=== PATIENT | male | born 1965 | race Caucasian/White ===

== ENCOUNTER 2016-07-11 10:22 | Observation (INO) | payer BC ==
[~2016-07-11] VITALS: Ht 177.8 cm; Wt 96.3 kg
[~2016-07-11 10:22] MED LIST: AMARYL2 MG PO; ASPIRIN E.C.81 M1 PO; Glucophage PO; JANUVIA100 MG PO; LIPITOR40 MG PO; Levaquin PO; Zestril,Prinivil PO
[2016-07-11] MEDS ORDERED: GLUCOPHAGE500 MG PO (10:50)
[2016-07-11] MEDS ORDERED: RABEPRAZOLE SOD20 MG PO (10:51)
[2016-07-11 11:23] LABS: EOSINOPHIL (%) 0.2 % (0-5); HEMATOCRIT 40.7 % (38.0-50.0); IMMATURE GRANULOCYTE (%) 0.1 % (0.0-0.7); IMMATURE GRANULOCYTE COUNT 0.1 K/uL; LYMPHOCYTE COUNT 1.8 K/uL (1.0-2.8); MCH 29.3 PG (29.0-34.0); MCHC 36.6 G/DL (30.0-36.0); MCV 80.1 FL (86-99); MEAN PLAT.VOLUME 10.8 uM^3 (9.0-12.4); MONOCYTE (%) 5.1 % (3-12); MONOCYTE COUNT 0.5 K/uL (0-0.8); NEUTROPHIL (%) 74.3 % (45-76); NEUTROPHIL COUNT 6.5 K/uL (1.8-6.4); PLATELET COUNT 236 K/uL (156-360); RBC DIS.WIDTH-CV 12.5 % (11.8-14.6); RBC DIS.WIDTH-SD 35.5 % (39-53); RED BLOOD COUNT 5.08 M/uL (4.00-5.50); WHITE BLOOD COUNT 8.8 K/uL (4.1-10.2)
[2016-07-11 11:34] LABS: CHLORIDE 99 mEq/L (99-109); SODIUM 134 mEq/L (136-147)
[2016-07-11 11:36] LABS: GLUCOSE 329 mg/dL (70-99)
[2016-07-11 11:38] LABS: ANION GAP 11 MEQ/L (2-14); TOTAL BILIRUBIN 0.9 mg/dL (0.0-1.0)
[2016-07-11 11:40] LABS: ALKALINE PHOSPHATASE 83 IU/L (3-129); GFR ESTIMATE (CALCULATED) > 59 mL/min/
[2016-07-11 11:41] LABS: UREA NITROGEN (BUN) 11 mg/dL (9-23)
[2016-07-11 11:44] LABS: LIPASE 17 U/L (1.0-51.0)
[2016-07-11 12:04] LABS: TROP-I INTERPRETATION NEGATIVE; TROPONIN-I < 0.01 ng/mL (0.0-0.30)
[2016-07-11] MEDS ORDERED: GLIPIZIDE10 MG PO (13:28)
[2016-07-11] MEDS ORDERED: TYLENOL EXTRA500 MG PO (13:31)
[2016-07-11 14:44] VITALS: BP 197/109
[2016-07-11 14:48] LABS: Estimated Average Glucose 286 mg/dL (70-123); HEMOGLOBIN A1c (GLYCOHEMOGLOB) 11.6 % HGB (Below 5.7)
[2016-07-11 16:00] VITALS: BP 176/110
[2016-07-11 17:37] LABS: POINT-OF-CARE METER ID UU13113700
[2016-07-11 18:12] LABS: TROP-I INTERPRETATION NEGATIVE; TROPONIN-I 0.01 ng/mL (0.0-0.30)
[2016-07-11 21:22] VITALS: BP 150/86
[2016-07-11 22:05] LABS: POINT-OF-CARE METER ID UU13113700
[2016-07-12 01:26] LABS: TROP-I INTERPRETATION NEGATIVE; TROPONIN-I < 0.01 ng/mL (0.0-0.30)
[2016-07-12 04:57] VITALS: BP 163/99
[2016-07-12 06:12] LABS: HEMATOCRIT 41.8 % (38.0-50.0); MCH 28.1 PG (29.0-34.0); MCHC 34.4 G/DL (30.0-36.0); MCV 81.5 FL (86-99); MEAN PLAT.VOLUME 10.7 uM^3 (9.0-12.4); PLATELET COUNT 231 K/uL (156-360); RBC DIS.WIDTH-CV 12.6 % (11.8-14.6); RBC DIS.WIDTH-SD 37.8 % (39-53); RED BLOOD COUNT 5.13 M/uL (4.00-5.50); WHITE BLOOD COUNT 8.5 K/uL (4.1-10.2)
[2016-07-12 06:31] LABS: ANION GAP 8 MEQ/L (2-14); CHLORIDE 103 MEQ/L (99-109); GFR ESTIMATE (CALCULATED) > 59 mL/min/; POTASSIUM 4.2 MEQ/L (3.7-5.4); SAMPLE HEMOLYSIS CHECK 0; SAMPLE ICTERIC CHECK 0; SAMPLE LIPEMIA CHECK 0; SODIUM 137 MEQ/L (136-147); UREA NITROGEN (BUN) 7 mg/dL (9-23)
[2016-07-12 06:51] LABS: GLUCOSE 157 mg/dL (70-99)
[2016-07-12 07:31] LABS: POINT-OF-CARE METER ID UU13113831
[2016-07-12 07:43] VITALS: BP 185/102
[2016-07-12] MEDS ORDERED: LISINOPRIL-HCT1 EACH PO (11:24)
[2016-07-12] MEDS ORDERED: LEVEMIR100 UNIT/2 SC (11:24)
[2016-07-12 11:41] VITALS: BP 162/70
[2016-07-12 12:15] LABS: POINT-OF-CARE METER ID UU13113831
== END 2016-07-12 14:07 | disposition home or self-care (01) ==
LOC: EME 10:22 → 5WEST 13:22 → EDOF 13:22 → 5WEST 14:32
PROVIDERS: Emergency Medicine; Hospitalist
DX: R07.9 Chest pain, unspecified (principal); R10.13 Epigastric pain; E86.0 Dehydration; E87.1 Hypo-osmolality and hyponatremia; I10 Essential (primary) hypertension; E78.5 Hyperlipidemia, unspecified; E11.65 Type 2 diabetes mellitus with hyperglycemia; R94.31 Abnormal electrocardiogram [ECG] [EKG]
CPT/HCPCS: 71010; 74177; 80048; 80053; 81003; 82948; 83036; 83605; 83690; 84484; 85025; 85027; 93005; 99281; 99285; C9113; G0378; J1650; J1815; J2405; J7030

== ENCOUNTER 2017-02-03 16:21 | Inpatient (IN) | payer OTHER, BC ==
[~2017-02-03] VITALS: Ht 177.8 cm; Wt 104.9 kg
[~2017-02-03 16:21] MED LIST changes: +GLIPIZIDE10 MG PO; +GLUCOPHAGE500 MG PO; +LEVEMIR100 UNIT/2 SC; +LISINOPRIL-HCT1 EACH PO; +RABEPRAZOLE SOD20 MG PO; +TYLENOL EXTRA500 MG PO
[2017-02-03 16:35] LABS: BASOPHIL COUNT 0.1 K/uL (0-0.1); EOSINOPHIL (%) 1.2 % (0-5); EOSINOPHIL COUNT 0.2 K/uL (0-0.3); HEMATOCRIT 36.8 % (38.0-50.0); IMMATURE GRANULOCYTE (%) 0.8 % (0.0-0.7); IMMATURE GRANULOCYTE COUNT 0.1 K/uL; LYMPHOCYTE COUNT 2.9 K/uL (1.0-2.8); MCH 28.8 PG (29.0-34.0); MCHC 34.5 G/DL (30.0-36.0); MCV 83.4 FL (86-99); MONOCYTE (%) 7.2 % (3-12); MONOCYTE COUNT 0.9 K/uL (0-0.8); NEUTROPHIL (%) 68.5 % (45-76); PLATELET COUNT 225 K/uL (156-360); RBC DIS.WIDTH-CV 12.6 % (11.8-14.6); RBC DIS.WIDTH-SD 38.7 % (39-53); RED BLOOD COUNT 4.41 M/uL (4.00-5.50); WHITE BLOOD COUNT 13.1 K/uL (4.1-10.2)
[2017-02-03 16:44] LABS: AMYLASE 31 IU/L (1-118); CHLORIDE 104 mEq/L (99-109); POTASSIUM 3.5 mEq/L (3.7-5.4); SODIUM 137 mEq/L (136-147)
[2017-02-03 16:46] LABS: GLUCOSE 190 mg/dL (70-99)
[2017-02-03 16:47] LABS: ANION GAP 17 MEQ/L (2-14)
[2017-02-03 16:49] LABS: SERUM ETHYL ALCOHOL 54 mg/dL
[2017-02-03 16:50] LABS: GFR ESTIMATE (CALCULATED) > 59 mL/min/
[2017-02-03 16:51] LABS: UREA NITROGEN (BUN) 25 mg/dL (9-23)
[2017-02-03 16:53] LABS: LIPASE 22 U/L (1.0-51.0)
[2017-02-03 18:17] LABS: PROTHROMBIN TIME 11.2 SEC (10.2-12.9)
[2017-02-03] MEDS ORDERED: ZESTORETIC 10-1 EAC1 PO (19:35)
[2017-02-03] MEDS ORDERED: METFORMIN HCL500 MG PO (19:36)
[2017-02-03] MEDS ORDERED: TRADJENTA5 MG PO (19:36)
[2017-02-03] MEDS ORDERED: LISINOPRIL-HCT1 EAC3 PO (19:37)
[2017-02-03 23:24] LABS: POINT-OF-CARE METER ID UU14188577
[2017-02-04] VITALS (7 sets, daily range): BP systolic 101–175; BP diastolic 58–82
[2017-02-04 06:36] LABS: POINT-OF-CARE METER ID UU14208753
[2017-02-04 12:38] LABS: POINT-OF-CARE METER ID UU13113675
[2017-02-04 13:13] LABS: EOSINOPHIL (%) 0.5 % (0-5); EOSINOPHIL COUNT 0.1 K/uL (0-0.3); HEMATOCRIT 36.9 % (38.0-50.0); IMMATURE GRANULOCYTE (%) 0.6 % (0.0-0.7); IMMATURE GRANULOCYTE COUNT 0.1 K/uL; INSTRUMENT ABS NEUTROPHIL CT 12.7 K/uL; MCH 29.5 PG (29.0-34.0); MCHC 34.4 G/DL (30.0-36.0); MCV 85.8 FL (86-99); MEAN PLAT.VOLUME 10.7 uM^3 (9.0-12.4); MONOCYTE (%) 4.2 % (3-12); MONOCYTE COUNT 0.6 K/uL (0-0.8); NEUTROPHIL (%) 87.4 % (45-76); NEUTROPHIL COUNT 12.7 K/uL (1.8-6.4); PLATELET COUNT 190 K/uL (156-360); RBC DIS.WIDTH-CV 13.1 % (11.8-14.6); RBC DIS.WIDTH-SD 40.8 % (39-53); WHITE BLOOD COUNT 14.5 K/uL (4.1-10.2)
[2017-02-04 13:36] LABS: ALKALINE PHOSPHATASE 71 IU/L (3-129); ANION GAP 10 MEQ/L (2-14); CHLORIDE 105 MEQ/L (99-109); GFR ESTIMATE (CALCULATED) > 59 mL/min/; GLUCOSE 184 mg/dL (70-99); MAGNESIUM 1.5 mg/dl (1.3-2.7); SAMPLE HEMOLYSIS CHECK 0; SAMPLE ICTERIC CHECK 0; SAMPLE LIPEMIA CHECK 0; SODIUM 136 MEQ/L (136-147); UREA NITROGEN (BUN) 17 mg/dL (9-23)
[2017-02-04 13:39] LABS: POTASSIUM 4.6 MEQ/L (3.7-5.4)
[2017-02-04 17:00] LABS: POINT-OF-CARE METER ID UU14208753
[2017-02-04 21:38] LABS: POINT-OF-CARE METER ID UU14188577
[2017-02-05 03:29] VITALS: BP 113/64
[2017-02-05 07:22] LABS: EOSINOPHIL (%) 0.1 % (0-5); HEMATOCRIT 32.2 % (38.0-50.0); IMMATURE GRANULOCYTE (%) 0.5 % (0.0-0.7); IMMATURE GRANULOCYTE COUNT 0.1 K/uL; INSTRUMENT ABS NEUTROPHIL CT 10.9 K/uL; LYMPHOCYTE COUNT 1.2 K/uL (1.0-2.8); MCH 29.4 PG (29.0-34.0); MCHC 34.5 G/DL (30.0-36.0); MCV 85.4 FL (86-99); MEAN PLAT.VOLUME 11.8 uM^3 (9.0-12.4); MONOCYTE (%) 7.2 % (3-12); NEUTROPHIL (%) 83.2 % (45-76); NEUTROPHIL COUNT 10.9 K/uL (1.8-6.4); PLATELET COUNT 197 K/uL (156-360); RBC DIS.WIDTH-CV 12.9 % (11.8-14.6); RBC DIS.WIDTH-SD 40.2 % (39-53); RED BLOOD COUNT 3.77 M/uL (4.00-5.50); WHITE BLOOD COUNT 13.2 K/uL (4.1-10.2)
[2017-02-05 07:48] LABS: ANION GAP 7 MEQ/L (2-14); CHLORIDE 106 MEQ/L (99-109); GFR ESTIMATE (CALCULATED) > 59 mL/min/; GLUCOSE 251 mg/dL (70-99); POTASSIUM 4.3 MEQ/L (3.7-5.4); SAMPLE HEMOLYSIS CHECK 0; SAMPLE ICTERIC CHECK 0; SAMPLE LIPEMIA CHECK 0; SODIUM 137 MEQ/L (136-147); UREA NITROGEN (BUN) 18 mg/dL (9-23)
[2017-02-05 08:25] VITALS: BP 124/79
[2017-02-05 11:30] VITALS: BP 134/84
[2017-02-05 16:25] VITALS: BP 125/74
[2017-02-05 16:26] LABS: POINT-OF-CARE METER ID UU14208753
[2017-02-05 19:49] VITALS: BP 133/79
[2017-02-05 21:59] LABS: POINT-OF-CARE METER ID UU14208753
[2017-02-05 23:49] VITALS: BP 110/67
[2017-02-06 03:46] VITALS: BP 137/85
[2017-02-06 07:02] LABS: POINT-OF-CARE METER ID UU14208753
[2017-02-06 07:35] VITALS: BP 136/82
[2017-02-06] MEDS ORDERED: ENDOCET 5-3251 EACH PO (08:58)
[2017-02-06 10:58] VITALS: BP 119/67
[2017-02-06 11:27] LABS: POINT-OF-CARE METER ID UU14117124
[2017-02-06] MEDS ORDERED: COLACE100 MG PO (13:52)
[2017-02-06] MEDS ORDERED: MIRALAX17 GM PO (13:53)
[2017-02-06] MEDS ORDERED: MILK OF MAGN PO (13:57)
[2017-02-06] MEDS ORDERED: LOVENOX40 MG/0.4 SC (17:35)
[2017-02-06] MEDS ORDERED: NOVOLOG100 UNIT/1 SC (17:36)
[2017-02-06] MEDS ORDERED: NEOSPORIN + P14.2 GM TP (17:39)
== END 2017-02-06 12:01 | DRG 493 ==
LOC: TRA 16:21 → 3EAST 20:33 → EDOF 20:33 → ENRESERV 20:42 → 3EAST 22:31
PROVIDERS: Emergency Medicine; Surgery
DX: S82.871A Displaced pilon fracture of right tibia, initial encounter for closed fracture (principal); S82.51XA Displaced fracture of medial malleolus of right tibia, initial encounter for closed fracture; S82.451A Displaced comminuted fracture of shaft of right fibula, initial encounter for closed fracture; S22.31XA Fracture of one rib, right side, initial encounter for closed fracture; V28.4XXA Motorcycle driver injured in noncollision transport accident in traffic accident, initial encounter; Y92.410 Unspecified street and highway as the place of occurrence of the external cause; E11.621 Type 2 diabetes mellitus with foot ulcer; S40.211A Abrasion of right shoulder, initial encounter; S50.811A Abrasion of right forearm, initial encounter; S50.812A Abrasion of left forearm, initial encounter; S60.411A Abrasion of left index finger, initial encounter; S60.413A Abrasion of left middle finger, initial encounter; S60.415A Abrasion of left ring finger, initial encounter; S60.417A Abrasion of left little finger, initial encounter; L97.529 Non-pressure chronic ulcer of other part of left foot with unspecified severity; E11.42 Type 2 diabetes mellitus with diabetic polyneuropathy; I10 Essential (primary) hypertension; E78.5 Hyperlipidemia, unspecified; E66.9 Obesity, unspecified; Z68.33 Body mass index [BMI] 33.0-33.9, adult; E04.1 Nontoxic single thyroid nodule; K21.9 Gastro-esophageal reflux disease without esophagitis; M51.35 Other intervertebral disc degeneration, thoracolumbar region; F10.10 Alcohol abuse, uncomplicated; Z89.421 Acquired absence of other right toe(s); Z79.4 Long term (current) use of insulin; Z82.49 Family history of ischemic heart disease and other diseases of the circulatory system
CPT/HCPCS: 70450; 71260; 72125; 72129; 72132; 73590; 73600; 73630; 73706; 74177; 76000; 80048; 80053; 81003; 82150; 82948; 83690; 83735; 84100; 85025; 85610; 86850; 86900; 86901; 93005; 94799; 99281; 99285; C1713; G0480; J0330; J0690; J1100; J1170; J1650; J1815; J2270; J2405; J2765; J3010; J7120

== ENCOUNTER 2017-02-06 09:08 | Inpatient (IN) | payer OTHER, BC ==
[~2017-02-06] VITALS: Ht 177.8 cm; Wt 104.9 kg
[~2017-02-06 09:08] MED LIST changes: +ENDOCET 5-3251 EACH PO; +LISINOPRIL-HCT1 EAC3 PO; +METFORMIN HCL500 MG PO; +TRADJENTA5 MG PO; +ZESTORETIC 10-1 EAC1 PO
[2017-02-06 12:45] VITALS: BP 108/63
[2017-02-06] MEDS ORDERED: COLACE100 MG PO (13:52)
[2017-02-06] MEDS ORDERED: MIRALAX17 GM PO (13:53)
[2017-02-06] MEDS ORDERED: MILK OF MAGN PO (13:57)
[2017-02-06 15:36] VITALS: BP 109/64
[2017-02-06] MEDS ORDERED: LOVENOX40 MG/0.4 SC (17:35)
[2017-02-06] MEDS ORDERED: NOVOLOG100 UNIT/1 SC (17:36)
[2017-02-06] MEDS ORDERED: NEOSPORIN + P14.2 GM TP (17:39)
[2017-02-06 17:43] LABS: POINT-OF-CARE METER ID UU14174215
[2017-02-06 21:17] LABS: POINT-OF-CARE METER ID UU14174215
[2017-02-06 23:54] VITALS: BP 131/79
[2017-02-07 05:25] LABS: MCH 29.3 PG (29.0-34.0); MCHC 33.8 G/DL (30.0-36.0); MCV 86.7 FL (86-99); PLATELET COUNT 225 K/uL (156-360); RBC DIS.WIDTH-CV 12.8 % (11.8-14.6); RBC DIS.WIDTH-SD 40.2 % (39-53); RED BLOOD COUNT 3.69 M/uL (4.00-5.50); WHITE BLOOD COUNT 8.4 K/uL (4.1-10.2)
[2017-02-07 05:51] VITALS: BP 119/74
[2017-02-07 05:58] LABS: ALKALINE PHOSPHATASE 54 IU/L (3-129); ANION GAP 10 MEQ/L (2-14); CHLORIDE 106 MEQ/L (99-109); GFR ESTIMATE (CALCULATED) > 59 mL/min/; GLUCOSE 158 mg/dL (70-99); POTASSIUM 3.9 MEQ/L (3.7-5.4); SAMPLE HEMOLYSIS CHECK 0; SAMPLE ICTERIC CHECK 0; SAMPLE LIPEMIA CHECK 0; SODIUM 141 MEQ/L (136-147); UREA NITROGEN (BUN) 17 mg/dL (9-23)
[2017-02-07 06:01] LABS: TOTAL BILIRUBIN 0.4 MG/DL (0.0-1.0)
[2017-02-07 07:14] LABS: POINT-OF-CARE METER ID UU14174215
[2017-02-07 11:15] LABS: POINT-OF-CARE METER ID UU13113720
[2017-02-07 15:24] VITALS: BP 117/56
[2017-02-07 16:40] LABS: POINT-OF-CARE METER ID UU13113720
[2017-02-07 21:08] LABS: POINT-OF-CARE METER ID UU14174215
[2017-02-08 04:05] VITALS: BP 122/76
[2017-02-08 07:01] LABS: POINT-OF-CARE METER ID UU13113720
[2017-02-08 11:45] LABS: POINT-OF-CARE METER ID UU14174215
[2017-02-08 15:16] VITALS: BP 117/74
[2017-02-08 16:27] LABS: POINT-OF-CARE METER ID UU14174215
[2017-02-08 21:11] LABS: POINT-OF-CARE METER ID UU13113720
[2017-02-09 04:57] VITALS: BP 115/62
[2017-02-09 07:20] LABS: POINT-OF-CARE METER ID UU14174215; POINT-OF-CARE USER ID ENVGAF
[2017-02-09 11:41] LABS: POINT-OF-CARE METER ID UU14174215
[2017-02-09 16:23] VITALS: BP 110/70
[2017-02-09 16:57] LABS: POINT-OF-CARE METER ID UU14174215
[2017-02-09 21:28] LABS: POINT-OF-CARE METER ID UU14174215
[2017-02-10 06:01] VITALS: BP 125/79
[2017-02-10 07:47] LABS: POINT-OF-CARE METER ID UU13113720; POINT-OF-CARE USER ID AHSSSJB31
[2017-02-10 11:58] LABS: POINT-OF-CARE METER ID UU13113720
[2017-02-10 15:30] VITALS: BP 119/76
[2017-02-10 16:20] LABS: POINT-OF-CARE METER ID UU13113720
[2017-02-10 21:20] LABS: POINT-OF-CARE METER ID UU13113720
[2017-02-11 05:46] VITALS: BP 121/75
[2017-02-11 07:44] LABS: POINT-OF-CARE METER ID UU13113720; POINT-OF-CARE USER ID AHSSSJB31
[2017-02-11 12:01] LABS: POINT-OF-CARE METER ID UU13113720; POINT-OF-CARE USER ID AHSSSJB31
[2017-02-11 15:15] VITALS: BP 111/63
[2017-02-11 16:08] LABS: POINT-OF-CARE METER ID UU13113720
[2017-02-11 21:38] LABS: POINT-OF-CARE METER ID UU13113720
[2017-02-12 05:14] VITALS: BP 124/79
[2017-02-12 07:20] LABS: POINT-OF-CARE METER ID UU13113720; POINT-OF-CARE USER ID AHSSSJB31
[2017-02-12 11:48] LABS: POINT-OF-CARE METER ID UU13113720
[2017-02-12 15:13] VITALS: BP 115/67
[2017-02-12 16:52] LABS: POINT-OF-CARE METER ID UU13113720
[2017-02-12 21:09] LABS: POINT-OF-CARE METER ID UU14174215
[2017-02-13 06:10] VITALS: BP 119/62
[2017-02-13 06:41] LABS: HEMATOCRIT 30.9 % (38.0-50.0); MCH 29.9 PG (29.0-34.0); MCV 85.6 FL (86-99); MEAN PLAT.VOLUME 10.2 uM^3 (9.0-12.4); PLATELET COUNT 289 K/uL (156-360); RBC DIS.WIDTH-CV 12.6 % (11.8-14.6); RBC DIS.WIDTH-SD 39.4 % (39-53); RED BLOOD COUNT 3.61 M/uL (4.00-5.50); WHITE BLOOD COUNT 7.5 K/uL (4.1-10.2)
[2017-02-13 06:52] LABS: POINT-OF-CARE METER ID UU14174215; POINT-OF-CARE USER ID AHSSSJB31
[2017-02-13 07:13] LABS: ALKALINE PHOSPHATASE 82 IU/L (3-129); ANION GAP 8 MEQ/L (2-14); CHLORIDE 104 MEQ/L (99-109); GFR ESTIMATE (CALCULATED) > 59 mL/min/; GLUCOSE 157 mg/dL (70-99); POTASSIUM 4.4 MEQ/L (3.7-5.4); SAMPLE HEMOLYSIS CHECK 0; SAMPLE ICTERIC CHECK 0; SAMPLE LIPEMIA CHECK 0; SODIUM 137 MEQ/L (136-147); TOTAL BILIRUBIN 0.4 MG/DL (0.0-1.0); UREA NITROGEN (BUN) 22 mg/dL (9-23)
[2017-02-13 11:47] LABS: POINT-OF-CARE METER ID UU14174215; POINT-OF-CARE USER ID ENVGAF
[2017-02-13 15:46] VITALS: BP 133/81
[2017-02-13 16:42] LABS: POINT-OF-CARE METER ID UU14174215
[2017-02-13 21:14] LABS: POINT-OF-CARE METER ID UU13113720
[2017-02-14 05:23] VITALS: BP 112/66
[2017-02-14 06:54] LABS: POINT-OF-CARE METER ID UU14174215; POINT-OF-CARE USER ID ENVGAF
[2017-02-14] MEDS ORDERED: ASCORBIC ACID500 M3 PO (09:40)
[2017-02-14] MEDS ORDERED: LOVENOX40 MG/0.4 SC (09:40)
[2017-02-14] MEDS ORDERED: FOLIC ACID1 MG PO (09:40)
[2017-02-14] MEDS ORDERED: COLACE100 MG PO (09:40)
[2017-02-14] MEDS ORDERED: THERAGRAN1 TABLET PO (09:40)
[2017-02-14] MEDS ORDERED: MIRALAX17 GM PO (09:40)
[2017-02-14] MEDS ORDERED: ENDOCET 5-3251 EACH PO (09:40)
[2017-02-14 11:33] LABS: POINT-OF-CARE METER ID UU14174215
== END 2017-02-14 13:21 | DRG 563 ==
LOC: 3WEST 09:08 → ENPENDDIS 02-14 → 3WEST 02-14 13:21
PROVIDERS: Physical Medicine & Rehabilitation Pain Medicine
PROC: F07M7ZZ Manual Therapy Techniques Treatment of Musculoskeletal System - Whole Body (ICD-10-PCS; principal; 2017-02-06)
DX: S82.409A Unspecified fracture of shaft of unspecified fibula, initial encounter for closed fracture (principal); S82.209A Unspecified fracture of shaft of unspecified tibia, initial encounter for closed fracture; L97.429 Non-pressure chronic ulcer of left heel and midfoot with unspecified severity; E83.51 Hypocalcemia; E11.42 Type 2 diabetes mellitus with diabetic polyneuropathy; E11.621 Type 2 diabetes mellitus with foot ulcer; S22.31XA Fracture of one rib, right side, initial encounter for closed fracture; S51.801A Unspecified open wound of right forearm, initial encounter; D62 Acute posthemorrhagic anemia; L97.509 Non-pressure chronic ulcer of other part of unspecified foot with unspecified severity; D72.829 Elevated white blood cell count, unspecified; M50.30 Other cervical disc degeneration, unspecified cervical region; M51.34 Other intervertebral disc degeneration, thoracic region; M51.35 Other intervertebral disc degeneration, thoracolumbar region; M51.36 Other intervertebral disc degeneration, lumbar region; V29.9XXA Motorcycle rider (driver) (passenger) injured in unspecified traffic accident, initial encounter; E04.1 Nontoxic single thyroid nodule; E78.5 Hyperlipidemia, unspecified; I10 Essential (primary) hypertension; Z68.33 Body mass index [BMI] 33.0-33.9, adult
CPT/HCPCS: 80053; 82948; 85027; 97110 GO; 97530 GP; J1650; J1815